=== PATIENT | female | born 1950 | race Caucasian/White ===

== ENCOUNTER 2022-06-29 13:56 | Outpatient (REF) | payer MEDICARE, OTHER, SELFPAY ==
[2022-06-29 16:05] LABS: Vitamin B12 482 pg/mL (200-900)
== END 2022-06-29 13:57 | disposition home or self-care (01) ==
LOC: HO.LAB 13:56
PROVIDERS: Visit Provider Psychiatry & Neurology Neurology
DX: G30.9 Alzheimer's disease, unspecified (principal)
CPT/HCPCS: 36415; 82607

== ENCOUNTER 2022-07-07 14:48 | Outpatient (REF) | payer MEDICARE, OTHER, SELFPAY | END 2022-07-07 14:49 | disposition home or self-care (01) | LOC: HO.MRI 14:48 | PROVIDERS: Visit Provider Psychiatry & Neurology Neurology | DX: Z13.89 Encounter for screening for other disorder (principal) ==